=== PATIENT | male | born 1960 | race Caucasian/White ===

== ENCOUNTER 2017-03-18 19:31 | Emergency (ER) | payer OTHER ==
[2017-03-18] MEDS ORDERED: Pepcid 20 MG VIAL IV ONE ×2 (20:17→20:22)
[2017-03-18] MEDS ORDERED: Sodium Chloride 0.9% 1000 ML 1,000 ML IV STA (20:17)
[2017-03-18] MEDS ORDERED: Zofran 4 MG/2 ML VIAL IV ONE (20:17)
--- NOTE | 2017-03-18 20:17 | ERPHSYRPT ---
- History of Present Illness Time Seen by Provider: 03/18/17 20:12 Historian: patient, family Exam Limitations: no limitations Patient Subjective Stated Complaint: pt states he has been having chest pain since this morning. states it is worse when he takes a drink. c/o burning pain in chest, denies radiation Triage Nursing Assessment: pt alert and oriented, answers questions approp. pt ambulatory with steady gait noted. skin pink warm and dry. respirations nonlabored with lungs cta. pt c/o nonradiating chest pain, states it is worse when he drinks and feels like a lump in his throat. sinus tach at 107 on monitor Physician History: The patient is a 56-year-old male with his complaining that about at 5 AM this morning he took his morning medicines and 30 minutes later he vomited. He went to work and didn't feel well most of the day. Every time he would drink something and felt like there was a lump in his stomach. Also when he would eat he would get a burning sensation. A granddaughter stays with them was diagnosed with strep pharyngitis 4 days ago. Recently he's had difficulty with his blood pressure. He is on new blood pressure medicine. His past medical history is significant for COPD, hypertension, anxiety, and chronic pain. Timing/Duration: today Activities at Onset: none Quality: burning, fullness Abdominal Pain Onset Location: epigastric Pain Radiation: no radiation Severity of Pain-Max: moderate Severity of Pain-Current: moderate Modifying Factors: Improves With: eating Associated Symptoms: vomiting Previous symptoms: no prior history Allergies/Adverse Reactions: Penicillins Allergy (Verified 03/18/17 19:47) tetracycline [Tetracycline] Allergy (Verified 03/18/17 19:47) Home Medications: Alprazolam 1 mg [Xanax 1 mg] 1 mg PO BID PRN 05/03/15 [History] Lisinopril [Prinivil] 20 mg PO DAILY 02/09/16 [History] Oxycodone HCl/Acetaminophen [Percocet 7.5-325 mg Tablet] 1 each PO Q4-6HPRN PRN 02/21/17 [History] Chlorthalidone 25 mg PO DAILY 03/18/17 [History] Hx Tetanus, Diphtheria Vaccination/Date Given: Yes Hx Influenza Vaccination/Date Given: Yes Hx Pneumococcal Vaccination/Date Given: Yes Immunizations Up to Date: Yes - Review of Systems Constitutional: No Fever, No Chills Eyes: No Symptoms Ears, Nose, & Throat: No Symptoms Respiratory: No Cough, No Dyspnea Cardiac: No Chest Pain, No Edema, No Syncope Abdominal/Gastrointestinal: Abdominal Pain, Vomiting, Appetite Changes Genitourinary Symptoms: No Dysuria Musculoskeletal: No Back Pain, No Neck Pain Skin: No Rash Neurological: No Dizziness, No Focal Weakness, No Sensory Changes Psychological: No Symptoms Endocrine: No Symptoms Hematologic/Lymphatic: No Symptoms Immunological/Allergic: No Symptoms All Other Systems: Reviewed and Negative - Past Medical History Pertinent Past Medical History: Yes Neurological History: No Pertinent History ENT History: No Pertinent History Cardiac History: High Cholesterol, Hypertension Respiratory History: COPD, Pneumonia, Sleep Apnea Endocrine Medical History: No Pertinent History Musculoskeletal History: Arthritis, Osteoarthritis GI Medical History: GERD, Hemorrhoids History: No Pertinent History Psycho-Social History: Anxiety, Depression Male Reproductive Disorders: No Pertinent History Other Medical History: back and neck problems - Past Surgical History Past Surgical History: Yes Neuro Surgical History: No Pertinent History Cardiac: No Pertinent History Respiratory: No Pertinent History Gastrointestinal: No Pertinent History Genitourinary: No Pertinent History Musculoskeletal: Orthopedic Surgery Male Surgical History: No Pertinent History Other Surgical History: Tonsillectomy. LEFT HAND REPAIR - Social History Smoking Status: Current every day smoker How long have you smoked: 40 Exposure to second hand smoke: Yes Drug Use: none Patient Lives Alone: No Significant Family History: no pertinent family hx - Nursing Vital Signs Nursing Vital Signs: Initial Vital Signs Temperature 97.9 F Temperature Source Oral Pulse Rate [Apical] 104 Pulse Rate 93 Respiratory Rate 14 Blood Pressure [Right Arm] 86/63 Pain Intensity 4 - Physical Exam General Appearance: moderate distress Eye Exam: PERRL/EOMI, eyes nml inspection Ears, Nose, Throat Exam: tonsillar exudate, other (white lesion on uvula) Neck Exam: normal inspection, non-tender, supple, full range of motion Respiratory Exam: normal breath sounds, lungs clear, No respiratory distress Cardiovascular Exam: regular rate/rhythm, normal heart sounds Gastrointestinal/Abdomen Exam: soft, No tenderness, No mass Rectal Exam: not done Back Exam: normal inspection, normal range of motion, No CVA tenderness, No vertebral tenderness Extremity Exam: normal inspection, normal range of motion, pelvis stable Neurologic Exam: alert, oriented x 3, cooperative, normal mood/affect, nml cerebellar function, sensation nml, No motor deficits Skin Exam: normal color, warm, dry SpO2 Interpretation: normal SpO2: 99 Oxygen Delivery: Room Air - Course EKG Interpreted by Me: RATE, Sinus Tach, NORMAL AXIS, NORMAL INTERVALS, NORMAL QRS, NORMAL ST-T, Other (No change compared to EKG 05/02/15) Ordered Tests: Active Orders 24 hr Category Date Time Status IV Insertion STAT Care 03/18/17 20:17 Active CHEST 2 VIEWS (PA AND LAT) Stat Exams 03/18/17 20:51 Ordered CBC W DIFF Stat Lab 03/18/17 20:00 Completed CMP Stat Lab 03/18/17 20:00 Completed CULTURE, THROAT Stat Lab 03/18/17 20:17 Received LIPASE Stat Lab 03/18/17 20:00 Completed Lactic Acid Urgent Lab 03/18/17 20:17 Completed STREP SCREEN-BETA A Stat Lab 03/18/17 20:17 Completed TROPONIN Stat Lab 03/18/17 20:00 Completed UA Stat Lab 03/18/17 20:42 Completed Medication Summary Discontinued Medications Generic Name Dose Route Start Last Admin Trade Name Freq PRN Reason Stop Dose Admin Aspirin 324 mg 03/18/17 21:34 03/18/17 21:38 Baby Aspirin 81 Mg Chew PO 03/18/17 21:35 324 mg STAT ONE Administration Aspirin Confirm 03/18/17 21:37 Baby Aspirin 81 Mg Chew Administered 03/18/17 21:38 Dose 324 mg .ROUTE .STK-MED ONE Famotidine 20 mg 03/18/17 20:17 03/18/17 20:24 Pepcid 20 Mg Vial IV 03/18/17 20:18 20 mg STAT ONE Administration Famotidine Confirm 03/18/17 20:22 Pepcid 20 Mg Vial Administered 03/18/17 20:23 Dose 20 mg IV .STK-MED ONE Sodium Chloride 1,000 mls @ 999 mls/hr 03/18/17 20:17 03/18/17 20:24 Sodium Chloride 0.9% 1000 Ml IV 03/18/17 21:17 999 mls/hr .Q1H1M STA Administration Sodium Chloride Confirm 03/18/17 20:22 Sodium Chloride 0.9% 1000 Ml Administered 03/18/17 20:23 Dose 1,000 mls @ ud .ROUTE .STK-MED ONE Ondansetron HCl 4 mg 03/18/17 20:17 03/18/17 20:24 Zofran 4 Mg/2 Ml Vial IV 03/18/17 20:18 4 mg STAT ONE Administration Ondansetron HCl Confirm 03/18/17 20:22 Zofran 4 Mg/2 Ml Vial Administered 03/18/17 20:23 Dose 4 mg .ROUTE .STK-MED ONE Lab/Rad Data: Laboratory Result Diagrams 03/18/17 20:00 03/18/17 20:00 Laboratory Results 03/18/17 03/18/17 03/18/17 Range/Units 20:42 20:17 20:17 WBC (4.0-10.5) K/mm3 RBC (4.1-5.6) M/mm3 Hgb (12.5-18.0) gm/dl Hct (42-50) % MCV (78-100) fl MCH (26-32) pg MCHC (32-36) g/dl RDW (11.5-14.0) % Plt Count (150-450) K/mm3 MPV (6-9.5) fl Gran % (36.0-66.0) % Lymphocytes % (24.0-44.0) % Monocytes % (0.0-12.0) % Eosinophils % (0.00-5.0) % Basophils % (0.0-0.4) % Basophils # (0-0.4) Sodium (136-145) mEq/L Potassium (3.5-5.1) mEq/L Chloride (98-107) mEq/L Carbon Dioxide (21-32) mEq/L Anion Gap (5-15) MEQ/L BUN (9-20) mg/dL Creatinine (0.55-1.30) mg/dl Estimated GFR ML/MIN Glucose (70-110) MG/DL Lactic Acid 2.0 (0.4-2.0) Calcium (8.5-10.1) mg/dL Total Bilirubin (0.2-1.0) mg/dL AST (15-37) U/L ALT (12-78) U/L Alkaline Phosphatase (46-116) U/L Troponin I (0.000-0.056) ng/ml Serum Total Protein (6.4-8.2) gm/dL Albumin (3.4-5.0) g/dL Lipase (73-393) U/L Ur Collection Type VOID Urine Color YELLOW (YELLOW) Urine Appearance CLEAR (CLEAR) Urine pH 7.0 (5-6) Ur Specific [place] 1.015 (1.005-1.025) Urine Protein NEGATIVE (Negative) Urine Glucose (UA) NEGATIVE (NEGATIVE) mg/dL Urine Ketones NEGATIVE (NEGATIVE) Urine Nitrite NEGATIVE (NEGATIVE) Urine Bilirubin NEGATIVE (NEGATIVE) Urine Urobilinogen 1 (0-1) mg/dL Urine WBC (Auto) NEGATIVE (NEGATIVE) Urine RBC (Auto) NEGATIVE (0-5) Gerardo/ul Streptococcus Screen NEGATIVE (Negative) Specimen Received 03/18/17203903/18/17 03/18/17 Range/Units 20:00 20:00 WBC 13.4 H (4.0-10.5) K/mm3 RBC 4.67 (4.1-5.6) M/mm3 Hgb 14.3 (12.5-18.0) gm/dl Hct 42.2 (42-50) % MCV 90.4 (78-100) fl MCH 30.6 (26-32) pg MCHC 33.9 (32-36) g/dl RDW 13.9 (11.5-14.0) % Plt Count 231 (150-450) K/mm3 MPV 10.0 H (6-9.5) fl Gran % 77.4 H (36.0-66.0) % Lymphocytes % 13.6 L (24.0-44.0) % Monocytes % 7.1 (0.0-12.0) % Eosinophils % 1.8 (0.00-5.0) % Basophils % 0.1 (0.0-0.4) % Basophils # 0.02 (0-0.4) Sodium 137 (136-145) mEq/L Potassium 4.5 (3.5-5.1) mEq/L Chloride 97 L (98-107) mEq/L Carbon Dioxide 30.5 (21-32) mEq/L Anion Gap 14.0 (5-15) MEQ/L BUN 30 H (9-20) mg/dL Creatinine 1.90 H (0.55-1.30) mg/dl Estimated GFR 39 ML/MIN Glucose 100 (70-110) MG/DL Lactic Acid (0.4-2.0) Calcium 9.3 (8.5-10.1) mg/dL Total Bilirubin 0.5 (0.2-1.0) mg/dL AST 35 (15-37) U/L ALT 94 H (12-78) U/L Alkaline Phosphatase 94 (46-116) U/L Troponin I 0.619 H* (0.000-0.056) ng/ml Serum Total Protein 7.5 (6.4-8.2) gm/dL Albumin 4.0 (3.4-5.0) g/dL Lipase 84 (73-393) U/L Ur Collection Type Urine Color (YELLOW) Urine Appearance (CLEAR) Urine pH (5-6) Ur Specific [place] (1.005-1.025) Urine Protein (Negative) Urine Glucose (UA) (NEGATIVE) mg/dL Urine Ketones (NEGATIVE) Urine Nitrite (NEGATIVE) Urine Bilirubin (NEGATIVE) Urine Urobilinogen (0-1) mg/dL Urine WBC (Auto) (NEGATIVE) Urine RBC (Auto) (0-5) Gerardo/ul Streptococcus Screen (Negative) Specimen Received - Progress Progress: unchanged Discussed with : Other (Dr Rhodes) Counseled pt/family regarding: lab results, diagnosis, rad results - Departure Time of Disposition: 21:56 Departure Disposition: Transfer (Transfer to [facility] per Dr Rhodes) Clinical Impression: Chest pain, Elevated troponin Condition: Stable Critical Care Time: No Additional Instructions: You have chest pain and elevated troponin. You are being transferred to [facility] per Dr Rhodes.
[2017-03-18] MEDS ORDERED: Zofran 4 MG/2 ML VIAL ONE (20:22)
[2017-03-18] MEDS ORDERED: Sodium Chloride 0.9% 1000 ML 1,000 ML ONE (20:22)
[2017-03-18 20:24] LABS: BASOPHIL % 0.1 % (0.0-0.4); Eosinophil % 1.8 % (0.00-5.0); Granulocytes % 77.4 % (36.0-66.0); Lymphocytes % 13.6 % (24.0-44.0); Mean Cell Volume 90.4 fl (78-100); Mean Corpuscular Hemoglobin 30.6 pg (26-32); Monocytes % 7.1 % (0.0-12.0); Platelet Count 231 K/mm3 (150-450); Red Blood Count 4.67 M/mm3 (4.1-5.6); Red Cell Distribution Width 13.9 % (11.5-14.0); White Blood Count 13.4 K/mm3 (4.0-10.5)
[2017-03-18 20:46] LABS: BILIRUBIN,TOTAL 0.5 mg/dL (0.2-1.0); Carbon Dioxide 30.5 mEq/L (21-32); Potassium 4.5 mEq/L (3.5-5.1); Total Protein 7.5 gm/dL (6.4-8.2)
[2017-03-18 20:48] LABS: TROPONIN 0.619 ng/ml (0.000-0.056)
[2017-03-18 20:48] LABS: Collection Type VOID
[2017-03-18 20:49] LABS: COMPLETE URINE MICROSCOPIC? NO
[2017-03-18] MEDS ORDERED: BABY ASPIRIN 81 MG CHEW PO ONE (21:34)
[2017-03-18] MEDS ORDERED: BABY ASPIRIN 81 MG CHEW ONE (21:37)
[2017-03-18 22:49] VITALS: BP 95/58; PULSE 92; O2SAT 97
--- NOTE | 2017-03-19 09:03 | XRAY ---
Indication: Chest pain. Comparison: October 20, 2016. PA/lateral chest again demonstrates a few calcified granulomas. New minimal bibasilar atelectasis/scarring. Remaining lungs clear. Heart is not enlarged. Bony thorax intact. Impression: Nonacute chest.
== END 2017-03-18 22:55 | disposition short-term general hospital (02) ==
LOC: ED 19:31
DX: R07.9 Chest pain, unspecified (principal); R79.89 Other specified abnormal findings of blood chemistry; J44.9 Chronic obstructive pulmonary disease, unspecified; I10 Essential (primary) hypertension; R10.13 Epigastric pain
CPT/HCPCS: 36000; 36415; 71020; 80053; 81002; 83605; 83690; 84484; 85025; 87070; 87430; 96360; 96374; 96375; 99285; J2405; A9270-GY

== ENCOUNTER 2017-05-16 17:00 | Emergency (ER) | payer OTHER ==
[2017-05-16] MEDS ORDERED: xanAX 0.5 MG PO ONE (17:20)
--- NOTE | 2017-05-16 17:27 | ERPHSYRPT ---
- History of Present Illness Time Seen by Provider: 05/16/17 17:13 Source: patient Exam Limitations: no limitations Patient Subjective Stated Complaint: high blood pressure feels sick to stomach, says feels like equalibrium off Triage Nursing Assessment: pt alert and oriented x3, gate steady, able to ambulate from weaiting room to exam room with no difficulties. pulses equal bialteral radius, pupils perrla3, lung sounds clear diminished, pain in stomach on palpation. arms feel heave, dizzy Physician History: 56-year-old white male with history of high blood pressure, COPD, chronic pain, sleep apnea, pneumonia, hyperlipidemia, anxiety. Who is recently had a normal cardiac catheterization. He arrives with complaint of elevated blood pressure states he felt dizzy felt nauseous symptoms since last night at around 11:00 states that he noticed that his blood pressure was elevated at home he is not having any movement disorders. Has no speech disorder no sensory loss. He does state that his extremities all feel heavy Patient does state he is on Xanax 1 mg 4 times a day he states he took one at 9: 00 this morning he did not take any this afternoon because he was getting ready for work. He does state that he has been nauseous. Past medical history includes high blood pressure, COPD, chronic pain, sleep apnea, pneumonia, hyperlipidemia, arthritis, osteoarthritis, GERD, hemorrhoids, anxiety, depression, chronic back and neck problems. Past surgical history includes orthopedic surgery, tonsillectomy, left hand repair, patient has had a recent normal cardiac catheterization. Timing/Duration: yesterday (last night at 11 PM) Severity: moderate Modifying Factors: Improves With: nothing Associated Symptoms: nausea, other (patient feels dizzy, feels like his extremities are heavy), No vomiting, No abdominal pain, No shortness of breath, No heartburn, No diaphoresis, No cough, No chills, No chest pain, No fever, No headaches, No loss of appetite, No malaise, No rash, No syncope, No seizure, No weakness Allergies/Adverse Reactions: Penicillins Allergy (Verified 03/18/17 19:47) tetracycline [Tetracycline] Allergy (Verified 03/18/17 19:47) Home Medications: Alprazolam 1 mg [Xanax 1 mg] 1 mg PO BID PRN 05/03/15 [History] Lisinopril [Prinivil] 10 mg PO DAILY 02/09/16 [History] Oxycodone HCl/Acetaminophen [Percocet 7.5-325 mg Tablet] 1 each PO Q4-6HPRN PRN 02/21/17 [History] Hx Tetanus, Diphtheria Vaccination/Date Given: Yes Hx Influenza Vaccination/Date Given: Yes Hx Pneumococcal Vaccination/Date Given: Yes Immunizations Up to Date: Yes - Review of Systems Constitutional: No Fever, No Chills Eyes: No Symptoms, No Discharge, No Eye Pain, No Eye Redness, No Itchy, No Photophobia, No Tearing, No Vision Changes, No Double Vision, No Foreign Body Sensation Ears, Nose, & Throat: No Symptoms, No Ear Pain, No Ear Discharge, No Hearing Changes, No Tinnitus, No Nose Pain, No Nose Congestion, No Nose Discharge, No Sinus Drainage, No Epistaxis, No Mouth Pain, No Mouth Swelling, No Loose Teeth, No Throat Pain, No Throat Swelling, No Hoarse, No Painful Swallowing, No Snoring , No Stridor Respiratory: No Cough, No Dyspnea Cardiac: No Chest Pain, No Edema, No Syncope Abdominal/Gastrointestinal: No Abdominal Pain, No Nausea, No Vomiting, No Diarrhea Genitourinary Symptoms: No Dysuria Musculoskeletal: No Back Pain, No Neck Pain Skin: No Rash Neurological: Dizziness, No Focal Weakness, No Gait Changes, No Headache, No Irritability, No Lethargy, No Paralysis, No Parasthesia, No Seizure, No Sensory Changes, No Speech Changes, No Tics, No Tremors, No Vertigo Psychological: No Symptoms Endocrine: No Symptoms All Other Systems: Reviewed and Negative - Past Medical History Pertinent Past Medical History: Yes Neurological History: No Pertinent History ENT History: No Pertinent History Cardiac History: High Cholesterol, Hypertension Respiratory History: COPD, Pneumonia, Sleep Apnea Endocrine Medical History: No Pertinent History Musculoskeletal History: Arthritis, Osteoarthritis GI Medical History: GERD, Hemorrhoids History: No Pertinent History Psycho-Social History: Anxiety, Depression Male Reproductive Disorders: No Pertinent History Other Medical History: back and neck problems - Past Surgical History Past Surgical History: Yes Neuro Surgical History: No Pertinent History Cardiac: No Pertinent History Respiratory: No Pertinent History Gastrointestinal: No Pertinent History Genitourinary: No Pertinent History Musculoskeletal: Orthopedic Surgery Male Surgical History: No Pertinent History Other Surgical History: Tonsillectomy. LEFT HAND REPAIR - Social History Smoking Status: Current every day smoker How long have you smoked: 40 Exposure to second hand smoke: Yes Drug Use: none Patient Lives Alone: No Significant Family History: no pertinent family hx - Nursing Vital Signs Nursing Vital Signs: Initial Vital Signs Temperature 98 F Temperature Source Oral Pulse Rate 85 Respiratory Rate 22 Blood Pressure [] 143/94 Pain Intensity 5 - Physical Exam General Appearance: mild distress, anxiety, No moderate distress, No severe distress Eye Exam: PERRL/EOMI, eyes nml inspection Ears, Nose, Throat Exam: normal ENT inspection, TMs normal, pharynx normal, moist mucous membranes Neck Exam: normal inspection, non-tender, supple, full range of motion Respiratory Exam: normal breath sounds, lungs clear, No respiratory distress Cardiovascular Exam: normal heart sounds, tachycardia, No murmur Gastrointestinal/Abdomen Exam: soft, normal bowel sounds, No tenderness, No mass Back Exam: normal inspection, normal range of motion, No CVA tenderness, No vertebral tenderness Extremity Exam: normal inspection, normal range of motion, pelvis stable Neurologic Exam: alert, oriented x 3, cooperative, normal mood/affect, nml cerebellar function, nml station & gait, sensation nml, No motor deficits Skin Exam: normal color, warm, dry, No rash Lymphatic Exam: No adenopathy SpO2 Interpretation: normal (96%) SpO2: 96 Oxygen Delivery: Room Air - Course Nursing assessment & vital signs reviewed: Yes EKG Interpreted by Me: RATE (87 bpm), Sinus Rhythm, NORMAL AXIS, Other (EKG: sinus rhythm, 87 bpm, normal axis , no acute st or t wave changes, normal ekg) - Radiology Exams Chest X-ray Interpretation: Interpreted by me, Negative, Other (chest x-ray: No acute disease process noted) - CT Exams Head CT Interpretation: Discussed w/radiologist (head CT: Stable normal CT head compared to May 02, 2015) Ordered Tests: Active Orders 24 hr Category Date Time Status Accucheck STAT Care 05/16/17 17:19 Active EKG-ER Only STAT Care 05/16/17 17:19 Active IV Insertion STAT Care 05/16/17 17:19 Active CHEST 1 VIEW (PORTABLE) Stat Exams 05/16/17 17:20 Taken HEAD WITHOUT CONTRAST [CT] Stat Exams 05/16/17 17:19 Taken CBC W DIFF Stat Lab 05/16/17 17:25 Completed CMP Stat Lab 05/16/17 17:25 Completed TROPONIN Stat Lab 05/16/17 17:25 Completed Medication Summary Generic Name Dose Route Start Last Admin Trade Name Nuris PRN Reason Stop Dose Admin Oxycodone/Acetaminophen 1 tab 05/16/17 18:43 Percocet Tablet 5/325mg PO 05/16/17 18:44 STAT STA Discontinued Medications Generic Name Dose Route Start Last Admin Trade Name Nuris PRN Reason Stop Dose Admin Alprazolam 1 mg 05/16/17 17:20 05/16/17 17:29 Xanax 0.5 Mg PO 05/16/17 17:21 1 mg STAT ONE Administration Alprazolam Confirm 05/16/17 17:29 Xanax 0.5 Mg Administered 05/16/17 17:30 Dose 1 mg .ROUTE .STK-MED ONE Aspirin 81 mg 05/16/17 18:44 Baby Aspirin 81 Mg Chew PO 05/16/17 18:45 STAT ONE Ondansetron HCl 4 mg 05/16/17 18:44 Zofran 4 Mg/2 Ml Vial IV 05/16/17 18:45 STAT ONE Lab/Rad Data: Laboratory Result Diagrams 05/16/17 17:25 05/16/17 17:25 Laboratory Results 05/16/17 05/16/17 Range/Units 17:25 17:25 WBC 9.5 (4.0-10.5) K/mm3 RBC 4.97 (4.1-5.6) M/mm3 Hgb 15.3 (12.5-18.0) gm/dl Hct 44.8 (42-50) % MCV 90.1 (78-100) fl MCH 30.8 (26-32) pg MCHC 34.2 (32-36) g/dl RDW 14.2 H (11.5-14.0) % Plt Count 300 (150-450) K/mm3 MPV 9.4 (6-9.5) fl Gran % 73.1 H (36.0-66.0) % Lymphocytes % 18.2 L (24.0-44.0) % Monocytes % 7.2 (0.0-12.0) % Eosinophils % 1.3 (0.00-5.0) % Basophils % 0.2 (0.0-0.4) % Basophils # 0.02 (0-0.4) Sodium 140 (136-145) mEq/L Potassium 3.7 (3.5-5.1) mEq/L Chloride 102 (98-107) mEq/L Carbon Dioxide 26.2 (21-32) mEq/L Anion Gap 15.6 H (5-15) MEQ/L BUN 9 (9-20) mg/dL Creatinine 1.22 (0.55-1.30) mg/dl Estimated GFR > 60 ML/MIN Glucose 109 (70-110) MG/DL Calcium 9.3 (8.5-10.1) mg/dL Total Bilirubin 0.50 (0.2-1.0) mg/dL AST 20 (15-37) U/L ALT 7 L (12-78) U/L Alkaline Phosphatase 67 (46-116) U/L Troponin I < 0.017 (0.000-0.056) ng/ml Serum Total Protein 7.6 (6.4-8.2) gm/dL Albumin 3.9 (3.4-5.0) g/dL - Progress Progress: improved Progress Note: 05/16/17 18:45 The patient's labs are all essentially normal. EKG essentially normal head CT normal no acute changes. Patient's blood pressure markedly improved after 1 Xanax tablet down to 146/93. Patient does have a prescription for Xanax 1 mg 4 times a day he apparently was not taking it this afternoon because he was planning to go to work. Patient is on lisinopril at homePatient was concerned about his renal functions renal functions are normal at this time and chemistry is essentially normal. Will plan to discharge patient he does state he has a headache at this time will give him an oxycodone tablet 5/325 he takes 7.5/325 home. Will give him Zofran 4 mg IV for nausea. Patient is to return home he is to take his medications as prescribed by his family doctor he is to call his family doctor tomorrow and arrange a follow-up visit. He is to return for acute distress or for severe symptoms. 05/16/17 18:49 Will give patient a slip for work for today and tomorrow. - Departure Time of Disposition: 18:47 Departure Disposition: Home Clinical Impression: Dizziness High blood pressure Qualifiers: Hypertension type: unspecified secondary hypertension Qualified Code(s): I15.9 - Secondary hypertension, unspecified; I15 - Secondary hypertension Condition: Fair Critical Care Time: No Additional Instructions: Return home., Rest Medications as prescribed by your family doctor. Follow-up with your family doctor call in the morning for appointment call sooner if problems or return. Return for acute distress or for severe symptoms.
[2017-05-16] MEDS ORDERED: xanAX 0.5 MG ONE (17:29)
[2017-05-16 17:33] LABS: BASOPHIL % 0.2 % (0.0-0.4); Eosinophil % 1.3 % (0.00-5.0); Granulocytes % 73.1 % (36.0-66.0); Lymphocytes % 18.2 % (24.0-44.0); Mean Cell Volume 90.1 fl (78-100); Mean Corpuscular Hemoglobin 30.8 pg (26-32); Mean Platelet Volume 9.4 fl (6-9.5); Monocytes % 7.2 % (0.0-12.0); Platelet Count 300 K/mm3 (150-450); Red Blood Count 4.97 M/mm3 (4.1-5.6); Red Cell Distribution Width 14.2 % (11.5-14.0); White Blood Count 9.5 K/mm3 (4.0-10.5)
[2017-05-16 18:13] LABS: ALBUMIN 3.9 g/dL (3.4-5.0); ALKALINE PHOSPHATASE 67 U/L (46-116); ANION GAP 15.6 MEQ/L (5-15); BLOOD UREA NITROGEN 9 mg/dL (9-20); CHLORIDE 102 mEq/L (98-107); Carbon Dioxide 26.2 mEq/L (21-32); Glucose 109 MG/DL (70-110); Potassium 3.7 mEq/L (3.5-5.1); SGOT/AST 20 U/L (15-37); SGPT/ALT 7 U/L (12-78); SODIUM 140 mEq/L (136-145); Total Protein 7.6 gm/dL (6.4-8.2)
[2017-05-16 18:15] LABS: TROPONIN < 0.017 ng/ml (0.000-0.056)
[2017-05-16] MEDS ORDERED: PERCOCET TABLET 5/325MG PO STA (18:43)
[2017-05-16] MEDS ORDERED: Zofran 4 MG/2 ML VIAL IV ONE (18:44)
[2017-05-16] MEDS ORDERED: BABY ASPIRIN 81 MG CHEW PO ONE (18:44)
[2017-05-16] MEDS ORDERED: BABY ASPIRIN 81 MG CHEW ONE (18:56)
[2017-05-16] MEDS ORDERED: PERCOCET TABLET 5/325MG ONE (18:56)
[2017-05-16] MEDS ORDERED: Zofran 4 MG/2 ML VIAL ONE (18:56)
[2017-05-16 19:12] VITALS: BP 157/89; PULSE 78; O2SAT 100
--- NOTE | 2017-05-17 08:27 | XRAY ---
Indication: Dizziness. Increased blood pressure. Multiple contiguous axial images obtained through the head without contrast. Comparison: May 02, 2015. Again normal appearing brain parenchyma, ventricles, and bony calvarium. Visualized paranasal sinuses and mastoid air cells are clear. Impression: Stable normal CT head without contrast exam. CTDI 69.66
--- NOTE | 2017-05-17 08:29 | XRAY ---
Indication: Dizziness. Hypertension. Comparison: March 18, 2017. Portable chest demonstrates normal heart, lungs, and bony thorax with a few incidental calcified granulomas.
== END 2017-05-16 19:12 | disposition home or self-care (01) ==
LOC: ED 17:00
DX: I15.9 Secondary hypertension, unspecified (principal); R42 Dizziness and giddiness; R11.0 Nausea
CPT/HCPCS: 36000; 36415; 70450; 71010; 80053; 84484; 85025; 93005; 96374; 99284; 99285; J2405; A9270-GY

== ENCOUNTER 2017-05-31 14:46 | Observation (INO) | payer OTHER ==
[2017-05-31 15:17] LABS: BASOPHIL % 0.4 % (0.0-0.4); Eosinophil % 5.3 % (0.00-5.0); Granulocytes % 65.1 % (36.0-66.0); Lymphocytes % 18.2 % (24.0-44.0); Mean Cell Volume 92.3 fl (78-100); Mean Corpuscular Hemoglobin 30.8 pg (26-32); Mean Platelet Volume 9.9 fl (6-9.5); Platelet Count 221 K/mm3 (150-450); Red Blood Count 4.41 M/mm3 (4.1-5.6); Red Cell Distribution Width 13.1 % (11.5-14.0); White Blood Count 8.5 K/mm3 (4.0-10.5)
[2017-05-31] MEDS ORDERED: Lactated Ringers 1,000 ML IV SCH (15:30)
[2017-05-31] MEDS: Lactated Ringers 1,000 ML IV SCH (15:40)
[2017-05-31 15:43] LABS: ALBUMIN 3.3 g/dL (3.4-5.0); ANION GAP 13.1 MEQ/L (5-15); BILIRUBIN,TOTAL 0.4 mg/dL (0.2-1.0); Carbon Dioxide 29.2 mEq/L (21-32); Potassium 3.7 mEq/L (3.5-5.1); TROPONIN 0.023 ng/ml (0.000-0.056); Total Protein 6.7 gm/dL (6.4-8.2)
[2017-05-31] MEDS ORDERED: NON-FORMULARY ITEM (Oxycodone Hcl/Acetaminophen [Percocet 7.5-325 Mg Tablet] 1 EACH) PO PRN (17:09)
[2017-05-31] MEDS: PERCOCET TABLET 5/325MG PO PRN (18:39)
[2017-05-31] MEDS: XANAX 1 MG PO SCH (18:40)
[2017-05-31] MEDS: NEURONTIN 300 MG PO SCH (22:28)
[2017-06-01] MEDS: Lactated Ringers 1,000 ML IV SCH ×2 (01:20→09:12)
[2017-06-01] MEDS: PERCOCET TABLET 5/325MG PO PRN ×2 (04:34→10:34)
[2017-06-01] MEDS: XANAX 1 MG PO SCH ×2 (04:37→09:15)
[2017-06-01 06:14] LABS: ANION GAP 8.4 MEQ/L (5-15); Carbon Dioxide 32.1 mEq/L (21-32); Potassium 4.2 mEq/L (3.5-5.1)
--- NOTE | 2017-06-01 08:01 | PCM.HP ---
History of Present Illness - Chief Complaint Chief Complaint: syncope Date: 06/01/17 History of Present Illness: is a 56 year old male. who recently had hctz added to his lisinopril last week and for the last 3 days has been very weak and has passed out in the pharmacy as well as falling at home multiple times. He presented to the clinic where sitting his bp was 90/60 and standing 70/50 and symptomatic. He was admitted for orthostatic hypotension bp meds held and and fluid bolus given he was found to have acute kidney injury. In the am his symptoms had resolved and was hypertensive again. He was started on hydralazine tid. He had no symptoms in am and was ambulating well with no chest pain or shortness of breath. He had no events overnight. He recently had cardiac work up at [facility]. - Review of Systems Constitutional: No Fever, No Chills Eyes: No Symptoms Ears, Nose, & Throat: No Symptoms Respiratory: No Cough, No Short Of Breath Cardiac: No Chest Pain, No Edema, No Syncope Abdominal/Gastrointestinal: No Abdominal Pain, No Nausea, No Vomiting, No Diarrhea Genitourinary Symptoms: No Dysuria Musculoskeletal: Back Pain, No Neck Pain Skin: No Rash Neurological: Dizziness, No Focal Weakness, No Sensory Changes Psychological: No Symptoms Endocrine: No Symptoms Hematologic/Lymphatic: No Symptoms Immunological/Allergic: No Symptoms Medications & Allergies Home Medications: Home Medication List Alprazolam 1 mg [Xanax 1 mg] 1 mg PO QID PRN 05/03/15 [History Confirmed 05/31/17] Oxycodone HCl/Acetaminophen [Percocet 7.5-325 mg Tablet] 1 each PO Q6HPRN PRN [History Confirmed 05/31/17] Aspirin 81 mg PO DAILY 05/31/17 [History Confirmed 05/31/17] Duloxetine HCl [Cymbalta] 60 mg PO DAILY 05/31/17 [History Confirmed 05/31/17] Gabapentin [Neurontin] 300 mg PO TID 05/31/17 [History Confirmed 05/31/17] Tamsulosin HCl [Flomax] 0.4 mg PO DAILY 05/31/17 [History Confirmed 05/31/17] HydrALAzine HCL 25 MG TAB [Apresoline 25 MG TABLET] 25 mg PO TID #90 tablet 06/01/17 [Rx] Allergies/Adverse Reactions: Allergies Allergy/AdvReac Type Severity Reaction Status Date / Time Penicillins Allergy Hives Verified 05/31/17 15:30 tetracycline [Tetracycline] Allergy Hives Verified 05/31/17 15:30 - Past Medical History Past Medical History: Yes Neurological History: No Pertinent History ENT History: No Pertinent History Cardiac History: High Cholesterol, Hypertension Respiratory History: COPD, Pneumonia, Sleep Apnea Endocrine Medical History: No Pertinent History Musculoskelatal History: Arthritis, Osteoarthritis GI Medical History: GERD, Hemorrhoids History: No Pertinent History Pyscho-Social History: Anxiety, Depression Male Reproductive Disorders: No Pertinent History Comment: bulging discs in back - Past Surgical History Past Surgical History: Yes Neuro Surgical History: No Pertinent History Cardiac History: Cardiac Catheterization Respiratory Surgery: No Pertinent History GI Surgical History: No Pertinent History Genitourinary Surgical Hx: No Pertinent History Musculskeletal Surgical Hx: Orthopedic Surgery Male Surgical History: No Pertinent History Other Surgical History: Tonsillectomy. LEFT HAND REPAIR - Social History Smoking Status: Current every day smoker How long have you smoked: 40 years Exposure to second hand smoke: Yes Alcohol: Rarely Drug Use: none Significant Family History: no pertinent family hx - Physical Exam Vital Signs: Vital Signs - 24 hr Temp Pulse Resp BP Pulse Ox 06/01/17 07:47 103 H 161/74 91 L 06/01/17 07:46 90 181/89 92 L 06/01/17 07:44 98.4 F 73 18 175/96 93 L 06/01/17 04:14 97.9 F 87 19 159/85 94 L 06/01/17 04:00 97.9 F 87 19 159/85 94 L 06/01/17 00:38 91 H 17 134/83 94 L 06/01/17 00:00 98.2 F 80 17 144/80 93 L 05/31/17 20:00 98.6 F 100 H 17 123/74 91 L 05/31/17 15:29 98.8 F 93 H 22 117/74 91 L Oxygen-Last 24 hours O2 Percentage 2 Liters = 28% O2 Percentage 2 Liters = 28% O2 Percentage 2 Liters = 28% O2 Percentage 2 Liters = 28% O2 Percentage 2 Liters = 28% General Appearance: no apparent distress, alert Neurologic Exam: alert, oriented x 3, cooperative, normal mood/affect, nml cerebellar function, nml station & gait, sensation nml, No motor deficits Eye Exam: PERRL/EOMI, eyes nml inspection Ears, Nose, Throat Exam: normal ENT inspection, TMs normal, pharynx normal, moist mucous membranes Neck Exam: normal inspection, non-tender, supple, full range of motion Respiratory Exam: normal breath sounds, lungs clear, No respiratory distress Cardiovascular Exam: regular rate/rhythm, normal heart sounds, normal peripheral pulses Gastrointestinal/Abdomen Exam: soft, normal bowel sounds, No tenderness, No mass Back Exam: normal inspection, normal range of motion, No CVA tenderness, No vertebral tenderness Extremity Exam: normal inspection, normal range of motion, pelvis stable Skin Exam: normal color, warm, dry, No rash Lymphatic Exam: No adenopathy Results - Labs Lab/Micro Results: Lab Results-Last 24 Hours 05/31/17 05/31/17 06/01/17 Range/Units 15:16 15:16 05:50 WBC 8.5 (4.0-10.5) K/mm3 RBC 4.41 (4.1-5.6) M/mm3 Hgb 13.6 (12.5-18.0) gm/dl Hct 40.7 L (42-50) % MCV 92.3 (78-100) fl MCH 30.8 (26-32) pg MCHC 33.4 (32-36) g/dl RDW 13.1 (11.5-14.0) % Plt Count 221 (150-450) K/mm3 MPV 9.9 H (6-9.5) fl Gran % 65.1 (36.0-66.0) % Lymphocytes % 18.2 L (24.0-44.0) % Monocytes % 11.0 (0.0-12.0) % Eosinophils % 5.3 H (0.00-5.0) % Basophils % 0.4 (0.0-0.4) % Basophils # 0.03 (0-0.4) Sodium 136 137 (136-145) mEq/L Potassium 3.7 4.2 (3.5-5.1) mEq/L Chloride 97 L 101 (98-107) mEq/L Carbon Dioxide 29.2 32.1 H (21-32) mEq/L Anion Gap 13.1 8.4 (5-15) MEQ/L BUN 32 H 23 H (9-20) mg/dL Creatinine 2.11 H 1.49 H (0.55-1.30) mg/dl Estimated GFR 35 52 ML/MIN Glucose 105 100 (70-110) MG/DL Calcium 9.2 9.0 (8.5-10.1) mg/dL Total Bilirubin 0.40 (0.2-1.0) mg/dL AST 37 (15-37) U/L ALT 27 (12-78) U/L Alkaline Phosphatase 59 (46-116) U/L Troponin I 0.023 (0.000-0.056) ng/ml Serum Total Protein 6.7 (6.4-8.2) gm/dL Albumin 3.3 L (3.4-5.0) g/dL - Radiology Impressions Radiology Exams & Impressions: Radiology Procedures Category Date Time Status ECHO W/2D AND DOPPLER [US] Routine Exams 06/01/17 08:00 Ordered Assessment/Plan (1) Orthostatic hypotension Status: Acute Code(s): I95.1 - ORTHOSTATIC HYPOTENSION (2) Syncope Status: Acute Code(s): R55 - SYNCOPE AND COLLAPSE (3) Acute kidney injury Status: Acute Assessment & Plan: improved with hydration Code(s): N17.9 - ACUTE KIDNEY FAILURE, UNSPECIFIED (4) Hypertension Status: Acute Assessment & Plan: he is asymptomatic this am. Will change his lisinopril/hctz to hydralazine 25 mg tid for now and continue to monitor as outpatient and repeat renal function. keep f/u with his nephrology our office was updating Dr. Prieto on his admission for hypotension after starting the lisinopril/hctz combo Code(s): I10 - ESSENTIAL (PRIMARY) HYPERTENSION
--- NOTE | 2017-06-01 08:14 | PCM.DCORD ---
- Discharge Discharge Date: 06/01/17 Disposition: Home, Self-Care Condition: Stable Prescriptions: New HydrALAzine HCL 25 MG TAB [Apresoline 25 MG TABLET] 25 mg PO TID #90 tablet Continue Alprazolam 1 mg [Xanax 1 mg] 1 mg PO QID PRN Oxycodone HCl/Acetaminophen [Percocet 7.5-325 mg Tablet] 1 each PO Q6HPRN PRN PRN Reason: Pain Duloxetine HCl [Cymbalta] 60 mg PO DAILY Aspirin 81 mg PO DAILY Gabapentin [Neurontin] 300 mg PO TID Tamsulosin HCl [Flomax] 0.4 mg PO DAILY Discontinued Lisinopril/Hydrochlorothiazide [Lisinopril-Hctz 20-25 mg Tab] 1 tab PO DAILY Follow up with: JENNIE CAGE [Primary Care Provider] - 1 Week
[2017-06-01] MEDS: NEURONTIN 300 MG PO SCH (09:11)
[2017-06-01] MEDS ORDERED: ECOTRIN 81 MG PO SCH (10:00)
[2017-06-01] MEDS ORDERED: Cymbalta 30 MG Capsule PO SCH (10:00)
[2017-06-01] MEDS ORDERED: NON-FORMULARY ITEM (Aspirin [Aspirin] 81 MG) PO SCH (10:00)
[2017-06-01] MEDS ORDERED: NON-FORMULARY ITEM (Duloxetine Hcl [Cymbalta] 60 MG) PO SCH (10:00)
[2017-06-01] MEDS ORDERED: Apresoline 25 MG TABLET PO SCH (10:00)
[2017-06-01 11:04] VITALS: BP 168/93; PULSE 93; O2SAT 93
== END 2017-06-01 11:45 | disposition home or self-care (01) ==
LOC: MED SURG 14:46
PROVIDERS: ADMIT Family Medicine; ATTEND Family Medicine
DX: I95.1 Orthostatic hypotension (principal); R55 Syncope and collapse; N17.9 Acute kidney failure, unspecified; I10 Essential (primary) hypertension
CPT/HCPCS: 36415; 80048; 80053; 84484; 85025; 93005; 93268; G0378; A9270-GY

== ENCOUNTER 2018-03-25 16:05 | Emergency (ER) | payer OTHER ==
--- NOTE | 2018-03-25 16:38 | ERPHSYRPT ---
- History of Present Illness Historian: patient, family Exam Limitations: no limitations Patient Subjective Stated Complaint: pt reports chest pain/abd pain beginning sunday-states that it hasn't changed-denies increased sob-reports cough- states that they changed his meds recently-states that he has been off balanced lately as well-denies n/v/d Triage Nursing Assessment: pt pink warm and diaphoretic upon arrival-pt states that he has been outside-resp easy and nonlabored-pupils responsive-pt able to move all extermities with ease-pt slightly off balanced when self tranferring to ed bed Allergies/Adverse Reactions: Penicillins Allergy (Verified 03/25/18 16:16) Hives tetracycline [Tetracycline] Allergy (Verified 03/25/18 16:16) Hives Home Medications: Aspirin 81 mg PO DAILY 05/31/17 [History] Amlodipine Besylate 10 mg [Norvasc 10 MG] 10 mg PO DAILY 03/25/18 [History] Chlorothiazide 250 mg PO DAILY 03/25/18 [History] Lisinopril 10 mg [Zestril 10 MG] 10 mg PO DAILY 03/25/18 [History] Hx Tetanus, Diphtheria Vaccination/Date Given: Yes Hx Influenza Vaccination/Date Given: Yes Hx Pneumococcal Vaccination/Date Given: Yes Immunizations Up to Date: Yes - Past Medical History Pertinent Past Medical History: Yes Neurological History: No Pertinent History, Other ENT History: No Pertinent History Cardiac History: High Cholesterol, Hypertension Respiratory History: COPD, Pneumonia, Sleep Apnea Endocrine Medical History: No Pertinent History Musculoskeletal History: Arthritis, Osteoarthritis GI Medical History: GERD, Hemorrhoids History: No Pertinent History Psycho-Social History: Anxiety, Depression Male Reproductive Disorders: No Pertinent History Other Medical History: bulging discs in back. narcolepsy - Past Surgical History Past Surgical History: Yes Neuro Surgical History: No Pertinent History Cardiac: Cardiac Catheterization Respiratory: No Pertinent History Gastrointestinal: No Pertinent History Genitourinary: No Pertinent History Musculoskeletal: Orthopedic Surgery Male Surgical History: No Pertinent History Other Surgical History: LEFT HAND REPAIR - Social History Smoking Status: Current every day smoker How long have you smoked: 40 years Exposure to second hand smoke: Yes Drug Use: none Patient Lives Alone: No Significant Family History: no pertinent family hx - Nursing Vital Signs Nursing Vital Signs: Initial Vital Signs Temperature 97.7 F 03/25/18 16:05 Pulse Rate 115 H 03/25/18 16:05 Respiratory Rate 18 03/25/18 16:05 Blood Pressure 93/76 03/25/18 16:05 O2 Sat by Pulse Oximetry 97 03/25/18 16:05 Pain Scale Pain Intensity 3 - Physical Exam SpO2: 97 Oxygen Delivery: Room Air - Departure Referrals: JENNIE CAGE [Primary Care Provider] -
--- NOTE | 2018-03-25 16:39 | ERPHSYRPT ---
- History of Present Illness Time Seen by Provider: 03/25/18 16:39 Source: patient, family Exam Limitations: no limitations Patient Subjective Stated Complaint: pt reports chest pain/abd pain beginning sunday-states that it hasn't changed-denies increased sob-reports cough- states that they changed his meds recently-states that he has been off balanced lately as well-denies n/v/d Triage Nursing Assessment: pt pink warm and diaphoretic upon arrival-pt states that he has been outside-resp easy and nonlabored-pupils responsive-pt able to move all extermities with ease-pt slightly off balanced when self tranferring to ed bed Physician History: The patient is a 57-year-old male with his complaining that he saw his doctor on Sunday and had his blood pressure medicine changed. His blood pressure had been running up with a diastolic of 120. Later that day and Sunday he started having muscle cramps in his feet and legs. Those cramps have subsided but beginning Sunday he started to have muscle cramps in his lower left rib cage and across his abdomen. These were intermittent and it kept him awake at night. He denies chest pain. He denies shortness of breath. He denies nausea or vomiting. He has been outside in the heat all weekend. His called his title insurance agent today, who monitors his blood pressure, and told patient to come to the nearest ER if he wanted to. His past medical history is significant for COPD, CAD, hypertension, anxiety, and chronic pain. Timing/Duration: day(s) (4), intermittent Severity: moderate Modifying Factors: Improves With: nothing Associated Symptoms: weakness Allergies/Adverse Reactions: Penicillins Allergy (Verified 03/25/18 16:16) Hives tetracycline [Tetracycline] Allergy (Verified 03/25/18 16:16) Hives Home Medications: Aspirin 81 mg PO DAILY 05/31/17 [History] Amlodipine Besylate 10 mg [Norvasc 10 MG] 10 mg PO DAILY 03/25/18 [History] Chlorothiazide 250 mg PO DAILY 03/25/18 [History] Lisinopril 10 mg [Zestril 10 MG] 10 mg PO DAILY 03/25/18 [History] Hx Tetanus, Diphtheria Vaccination/Date Given: Yes Hx Influenza Vaccination/Date Given: Yes Hx Pneumococcal Vaccination/Date Given: Yes Immunizations Up to Date: Yes - Review of Systems Constitutional: Weakness Eyes: No Symptoms Ears, Nose, & Throat: No Symptoms Respiratory: No Cough, No Dyspnea Cardiac: No Chest Pain, No Edema, No Syncope Abdominal/Gastrointestinal: Abdominal Pain, No Nausea, No Vomiting, No Diarrhea Genitourinary Symptoms: No Dysuria Musculoskeletal: No Back Pain, No Neck Pain Skin: No Rash Neurological: No Dizziness, No Focal Weakness, No Sensory Changes Psychological: No Symptoms Endocrine: No Symptoms Hematologic/Lymphatic: No Symptoms Immunological/Allergic: No Symptoms All Other Systems: Reviewed and Negative - Past Medical History Pertinent Past Medical History: Yes Neurological History: No Pertinent History, Other ENT History: No Pertinent History Cardiac History: High Cholesterol, Hypertension Respiratory History: COPD, Pneumonia, Sleep Apnea Endocrine Medical History: No Pertinent History Musculoskeletal History: Arthritis, Osteoarthritis GI Medical History: GERD, Hemorrhoids History: No Pertinent History Psycho-Social History: Anxiety, Depression Male Reproductive Disorders: No Pertinent History Other Medical History: bulging discs in back. narcolepsy - Past Surgical History Past Surgical History: Yes Neuro Surgical History: No Pertinent History Cardiac: Cardiac Catheterization Respiratory: No Pertinent History Gastrointestinal: No Pertinent History Genitourinary: No Pertinent History Musculoskeletal: Orthopedic Surgery Male Surgical History: No Pertinent History Other Surgical History: LEFT HAND REPAIR - Social History Smoking Status: Current every day smoker How long have you smoked: 40 years Exposure to second hand smoke: Yes Drug Use: none Patient Lives Alone: No Significant Family History: no pertinent family hx - Nursing Vital Signs Nursing Vital Signs: Initial Vital Signs Temperature 97.7 F 03/25/18 16:05 Pulse Rate 115 H 03/25/18 16:05 Respiratory Rate 18 03/25/18 16:05 Blood Pressure 93/76 03/25/18 16:05 O2 Sat by Pulse Oximetry 97 03/25/18 16:05 Pain Scale Pain Intensity 2 - Physical Exam General Appearance: moderate distress Eye Exam: PERRL/EOMI, eyes nml inspection Ears, Nose, Throat Exam: normal ENT inspection, TMs normal, pharynx normal, moist mucous membranes Neck Exam: normal inspection, non-tender, supple, full range of motion Respiratory Exam: normal breath sounds, lungs clear, No respiratory distress Cardiovascular Exam: regular rate/rhythm, normal heart sounds, normal peripheral pulses Gastrointestinal/Abdomen Exam: tenderness (tenderness while having spasm) Rectal Exam: not done Back Exam: normal inspection, normal range of motion, No CVA tenderness, No vertebral tenderness Extremity Exam: normal inspection, normal range of motion, pelvis stable Neurologic Exam: alert, oriented x 3, cooperative, normal mood/affect, nml cerebellar function, nml station & gait, sensation nml, No motor deficits Skin Exam: normal color, warm, dry, No rash Lymphatic Exam: No adenopathy SpO2 Interpretation: normal SpO2: 97 Oxygen Delivery: Room Air - Course EKG Interpreted by Me: RATE, Sinus Rhythm, NORMAL AXIS, NORMAL INTERVALS, NORMAL QRS, NORMAL ST-T - Radiology Exams Chest X-ray Interpretation: Reviewed by me, Teleradiologist Report, Negative (per Dr Walters.) Ordered Tests: Active Orders 24 hr Category Date Time Status Clean Catch Urine Specimen STAT Care 03/25/18 16:46 Active EKG-ER Only STAT Care 03/25/18 16:46 Active IV Insertion STAT Care 03/25/18 16:46 Active Orthostatic Vital Signs STAT Care 03/25/18 16:47 Active CHEST 2 VIEWS (PA AND LAT) Stat Exams 03/25/18 17:13 Completed AMYLASE Routine Lab 03/25/18 17:00 Completed CBC W DIFF Stat Lab 03/25/18 17:00 Completed CMP Routine Lab 03/25/18 17:00 Completed LIPASE Routine Lab 03/25/18 17:00 Completed Lactic Acid Stat Lab 03/25/18 17:20 Completed TROPONIN Q3H Lab 03/25/18 17:00 Completed TROPONIN Q3H Lab 03/25/18 20:00 Ordered TROPONIN Q3H Lab 03/25/18 23:00 Ordered TROPONIN Q3H Lab 03/26/18 02:00 Ordered TROPONIN Q3H Lab 03/26/18 05:00 Ordered UA W/RFX UR CULTURE Stat Lab 03/25/18 16:46 Uncollected Medication Summary Discontinued Medications Generic Name Dose Route Start Last Admin Trade Name Freq PRN Reason Stop Dose Admin Sodium Chloride 1,000 mls @ 999 mls/hr 03/25/18 16:46 03/25/18 18:32 Sodium Chloride 0.9% 1000 Ml IV 03/25/18 17:46 Infused .Q1H1M STA Infusion Sodium Chloride Confirm 03/25/18 16:51 Sodium Chloride 0.9% 1000 Ml Administered 03/25/18 16:52 Dose 1,000 mls @ ud .ROUTE .STK-MED ONE Sodium Chloride 1,000 mls @ 999 mls/hr 03/25/18 17:57 03/25/18 18:23 Sodium Chloride 0.9% 1000 Ml IV 03/25/18 18:57 999 mls/hr .Q1H1M STA Administration Sodium Chloride Confirm 03/25/18 18:22 Sodium Chloride 0.9% 1000 Ml Administered 03/25/18 18:23 Dose 1,000 mls @ ud .ROUTE .STK-MED ONE Lorazepam 2 mg 03/25/18 16:48 03/25/18 16:52 Ativan 2 Mg/1 Ml Vial IV 03/25/18 16:49 2 mg STAT ONE Administration Lorazepam Confirm 03/25/18 16:51 Ativan 2 Mg/1 Ml Vial Administered 03/25/18 16:52 Dose 2 mg .ROUTE .STK-MED ONE Lab/Rad Data: Laboratory Result Diagrams 03/25/18 17:00 03/25/18 17:00 Laboratory Results 03/25/18 03/25/18 03/25/18 Range/Units 17:20 17:00 17:00 WBC 12.1 H (4.0-10.5) K/mm3 RBC 5.48 (4.1-5.6) M/mm3 Hgb 16.6 (12.5-18.0) gm/dl Hct 47.4 (42-50) % MCV 86.5 (78-100) fl MCH 30.3 (26-32) pg MCHC 35.0 (32-36) g/dl RDW 13.6 (11.5-14.0) % Plt Count 461 H (150-450) K/mm3 MPV 9.7 H (6-9.5) fl Gran % 64.3 (36.0-66.0) % Eos # (Auto) 0.22 (0-0.5) Absolute Lymphs (auto) 2.82 (1.0-4.6) Absolute Monos (auto) 1.24 (0.0-1.3) Lymphocytes % 23.4 L (24.0-44.0) % Monocytes % 10.3 (0.0-12.0) % Eosinophils % 1.8 (0.00-5.0) % Basophils % 0.2 (0.0-0.4) % Absolute Granulocytes 7.77 H (1.4-6.9) Basophils # 0.02 (0-0.4) Sodium 137 (137-145) mmol/L Potassium 3.5 (3.5-5.1) mmol/L Chloride 94 L (98-107) mmol/L Carbon Dioxide 24 (22-30) mmol/L Anion Gap 22.1 H (5-15) MEQ/L BUN 39 H (9-20) mg/dL Creatinine 2.38 H (0.66-1.25) mg/dL Estimated GFR 30.1 ML/MIN Glucose 106 (74-106) mg/dL Lactic Acid 1.3 (0.4-2.0) Calcium 10.4 H (8.4-10.2) mg/dL Total Bilirubin 0.80 (0.2-1.3) mg/dL AST 52 (17-59) U/L ALT 62 H (0-50) U/L Alkaline Phosphatase 88 (38-126) U/L Troponin I 0.013 (0.000-0.034) ng/mL Serum Total Protein 8.8 H (6.3-8.2) g/dL Albumin 5.1 H (3.5-5.0) g/dL Amylase 75 (30-110) U/L Lipase 101 (23-300) U/L - Progress Progress: improved Progress Note: 03/25/18 17:56 Pt is improving after nearly 1 L on NS IV. 03/25/18 19:06 Pt given NS 2 L and feels much better. Counseled pt/family regarding: lab results, diagnosis, need for follow-up - Departure Time of Disposition: 19:06 Departure Disposition: Home Clinical Impression: Dehydration, Hypotension Condition: Stable Critical Care Time: No Referrals: JENNIE CAGE [Primary Care Provider] - Additional Instructions: You were dehydrated with low blood pressure. The muscle cramps were due to the dehydration. You were given Ativan 2 mg by IV. You were also given 2 L of fluid by IV. Stay well hydrated. Follow-up tomorrow is still having difficulties.
[2018-03-25] MEDS ORDERED: Sodium Chloride 0.9% 1000 ML 1,000 ML IV STA ×2 (16:46→17:57)
[2018-03-25] MEDS ORDERED: Ativan 2 MG/1 ML VIAL IV ONE (16:48)
[2018-03-25] MEDS ORDERED: Ativan 2 MG/1 ML VIAL ONE (16:51)
[2018-03-25] MEDS ORDERED: Sodium Chloride 0.9% 1000 ML 1,000 ML ONE ×2 (16:51→18:22)
[2018-03-25 17:10] LABS: BASOPHIL % 0.2 % (0.0-0.4); Basophil (Absolute #) 0.02 (0-0.4); Eosinophil % 1.8 % (0.00-5.0); Eosinophil (Absolute #) 0.22 (0-0.5); Granulocyte Absolute (ANC) 7.77 (1.4-6.9); Granulocytes % 64.3 % (36.0-66.0); Hematocrit 47.4 % (42-50); Hemoglobin 16.6 gm/dl (12.5-18.0); Lymphocyte (Absolute #) 2.82 (1.0-4.6); Lymphocytes % 23.4 % (24.0-44.0); Mean Cell Volume 86.5 fl (78-100); Mean Corpuscular Hemoglobin 30.3 pg (26-32); Mean Platelet Volume 9.7 fl (6-9.5); Monocyte (Absolute #) 1.24 (0.0-1.3); Monocytes % 10.3 % (0.0-12.0); Platelet Count 461 K/mm3 (150-450); Red Blood Count 5.48 M/mm3 (4.1-5.6); Red Cell Distribution Width 13.6 % (11.5-14.0); White Blood Count 12.1 K/mm3 (4.0-10.5)
--- NOTE | 2018-03-25 17:25 | XRAY ---
Indication: Pain and anxiety. Comparison: December 07, 2017. PA/lateral chest less inflated with minimal left base atelectasis/scarring. Stable right lung calcified granuloma. Remaining heart and lungs unremarkable. Bony thorax intact. Impression: Nonacute chest.
[2018-03-25 17:33] LABS: ALBUMIN 5.1 g/dL (3.5-5.0); ANION GAP 22.1 MEQ/L (5-15); BILIRUBIN,TOTAL 0.8 mg/dL (0.2-1.3); Calcium 10.4 mg/dL (8.4-10.2); Creatinine 1 2.38 mg/dL (0.66-1.25); Potassium 3.5 mmol/L (3.5-5.1); Total Protein 8.8 g/dL (6.3-8.2)
[2018-03-25 17:46] LABS: TROPONIN 0.013 ng/mL (0.000-0.034)
[2018-03-25 19:08] VITALS: O2SAT 97
[2018-03-25 19:12] VITALS: BP 118/78
[2018-03-25 19:29] VITALS: PULSE 90
== END 2018-03-25 19:38 | disposition home or self-care (01) ==
LOC: ED 16:05
DX: E86.0 Dehydration (principal); I95.9 Hypotension, unspecified; R25.2 Cramp and spasm; Z79.82 Long term (current) use of aspirin; Z79.899 Other long term (current) drug therapy
CPT/HCPCS: 36000; 36415; 71046; 80053; 82150; 83605; 83690; 84484; 85025; 93005; 96360; 96374; 99284; J2060

== ENCOUNTER 2024-05-28 12:21 | Day surgery (SDC) | payer MEDICARE ==
[2024-05-28] MEDS ORDERED: Sodium Chloride 0.9(Preservative Free) 10 ML IJ ONE (12:22)
[2024-05-28] MEDS ORDERED: Decadron 4 MG INJ IV ONE (12:22)
[2024-05-28] MEDS ORDERED: DIPRIVAN 200 MG/20 ML IV ONE (13:25)
[2024-05-28] MEDS ORDERED: Lactated Ringers 1,000 ML IV ONE (14:07)
--- NOTE | 2024-05-28 17:16 | XRAY ---
16 seconds of fluoroscopy was used in surgery for a left L4-S1 transforaminal JAQUAN.
--- NOTE | 2024-05-29 12:28 | XRAY ---
16 seconds of fluoroscopy was used in surgery for a left L4-S1 transforaminal JAQUAN.
== END 2024-05-28 13:54 | disposition home or self-care (01) ==
LOC: SDC-PAIN 12:21
PROVIDERS: ATTEND Psychiatry & Neurology Pain Medicine
DX: M54.16 Radiculopathy, lumbar region (principal)
CPT/HCPCS: 64483; 64484; 72100; 77003; J1100; J2704; Q9966